=== PATIENT | male | born 2005 | race Caucasian/White ===

== ENCOUNTER 2023-05-20 21:14 | Emergency (ER) | payer OTHER ==
--- NOTE | 2023-05-20 21:27 | ERPHSYRPT ---
- History of Present Illness Time Seen by Provider: 05/20/23 21:27 Historian: patient Exam Limitations: no limitations Physician History: This is a 18-year-old white male has no known cardiac history and works down in the [employer]. While working today he was "bolting" when he had a sudden onset of sharp pain that is central and substernal that radiated cranially up to his chin. That has since resolved but he was having mild shortness of breath associated with that. He denies fever. He denies cough. He has never had anything like this before. Patient does smoke cigarettes/tobacco. He does not use marijuana or other illicit drugs per his report. He has no known drug allergies and he takes no medications chronically. 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) Quality: sharpness, stabbing Location: substernal, central Chest Pain Radiation: jaw Severity of Pain-Max: mild Severity of Pain-Current: none Modifying Factors: Improves With: nothing Associated Symptoms: denies symptoms Prior Chest Pain/Cardiac Workup: no prior chest pain Nitro Today/Relief: no nitro taken today Aspirin Treatment Today: 81 mg x 4, provided by ED Allergies/Adverse Reactions: No Known Drug Allergies Allergy (Unverified 05/20/23 21:17) Home Medications: No Reportable Medications [No Reported Medications] 05/20/23 [History] Travel Risk - International Travel Have you traveled outside of the country in past 3 weeks: No - Coronavirus Screening Are you exhibiting any of the following symptoms?: No Close contact with a COVID-19 positive Pt in past 14-21 Days: No - Review of Systems Constitutional: No Symptoms Eyes: No Symptoms Ears, Nose, & Throat: No Symptoms Respiratory: No Symptoms Cardiac: Chest Pain (Earlier while at work but none now) Abdominal/Gastrointestinal: No Symptoms Genitourinary Symptoms: No Symptoms Musculoskeletal: No Symptoms Skin: No Symptoms Neurological: No Symptoms Psychological: No Symptoms Endocrine: No Symptoms Hematologic/Lymphatic: No Symptoms Immunological/Allergic: No Symptoms All Other Systems: Reviewed and Negative - Past Medical History Pertinent Past Medical History: No - Past Surgical History Past Surgical History: No - Nursing Vital Signs Nursing Vital Signs: Initial Vital Signs Temperature 98.8 F 05/20/23 21:18 Pulse Rate 80 05/20/23 21:18 Respiratory Rate 16 05/20/23 21:18 Blood Pressure 131/81 05/20/23 21:18 O2 Sat by Pulse Oximetry 100 05/20/23 21:18 Pain Scale Pain Intensity 7 - Physical Exam General Appearance: no apparent distress, alert, anxiety, thin Eye Exam: PERRL/EOMI, eyes nml inspection Ears, Nose, Throat Exam: normal ENT inspection, moist mucous membranes Neck Exam: normal inspection, non-tender, supple, full range of motion Respiratory Exam: normal breath sounds, lungs clear, airway intact, No chest tenderness, No respiratory distress Cardiovascular Exam: regular rate/rhythm, normal heart sounds, normal peripheral pulses Gastrointestinal/Abdomen Exam: soft, normal bowel sounds, No tenderness Rectal Exam: not done Back Exam: normal inspection, normal range of motion, No CVA tenderness Extremity Exam: normal inspection, normal range of motion, pelvis stable Neurologic Exam: alert, oriented x 3, cooperative, ship mate II-XII nml as tested, normal mood/affect, nml cerebellar function, nml station & gait, sensation nml Skin Exam: normal color, warm, dry Lymphatic Exam: No adenopathy SpO2 Interpretation: normal O2 Delivery: Room Air - Course Nursing assessment & vital signs reviewed: Yes EKG Interpreted by Me: RATE (79), Sinus Rhythm, NORMAL AXIS, NORMAL INTERVALS, NORMAL QRS, NORMAL ST-T, Other Ordered Tests: Active Orders 24 hr Category Date Time Status Web Editor STAT Care 05/20/23 21:34 Active EKG-ER Only STAT Care 05/20/23 21:33 Active Pulse Oximetry (ED) STAT Care 05/20/23 21:33 Active CHEST 1 VIEW (PORTABLE) Stat Exams 05/20/23 21:33 Ordered CBC W DIFF Stat Lab 05/20/23 21:33 Completed CMP Stat Lab 05/20/23 21:33 Completed D-DIMER QUANTITATIVE Stat Lab 05/20/23 21:33 Completed TROPONIN Q4H Lab 05/20/23 21:45 Completed TROPONIN Q4H Lab 05/21/23 01:45 Ordered TROPONIN Q4H Lab 05/21/23 05:45 Ordered Medication Summary Discontinued Medications Generic Name Dose Route Start Last Admin Trade Name Freq PRN Reason Stop Dose Admin Aspirin 324 mg 05/20/23 21:33 05/20/23 21:53 Aspirin 81 Mg Tab.Chew PO 05/20/23 21:34 324 mg STAT ONE Administration Lab/Rad Data: Laboratory Result Diagrams 05/20/23 21:33 05/20/23 21:33 Laboratory Results 05/20/23 05/20/23 05/20/23 Range/Units 21:45 21:33 21:33 WBC (4.0-10.5) x10^3/uL RBC (4.1-5.6) x10^6/uL Hgb (12.5-18.0) g/dL Hct (42-50) % MCV (78-100) fL MCH (26-32) pg MCHC (32-36) g/dL RDW (11.5-14.0) % Plt Count (150-450) x10^3/uL MPV (7.5-11.0) fL Gran % (36.0-66.0) % Immature Gran % (Auto) (0.00-0.4) % Nucleat RBC Rel Count (0.00-0.1) % Eos # (Auto) (0-0.5) x10^3/uL Immature Gran # (Auto) (0.00-0.03) x10^3u/L Absolute Lymphs (auto) (1.0-4.6) x10^3/uL Absolute Monos (auto) (0.0-1.3) x10^3/uL Absolute Nucleated RBC (0.00-0.01) x10^3u/L Lymphocytes % (24.0-44.0) % Monocytes % (0.0-12.0) % Eosinophils % (0.00-5.0) % Basophils % (0.0-0.4) % Absolute Granulocytes (1.4-6.9) x10^3/uL Basophils # (0-0.4) x10^3/uL D-Dimer < 0.19 (0.0-0.50) mg/L Sodium 141 (137-145) mmol/L Potassium 3.6 (3.5-5.1) mmol/L Chloride 103 (98-107) mmol/L Carbon Dioxide 30 (22-30) mmol/L Anion Gap 11.7 (5-15) MEQ/L BUN 8 L (9-20) mg/dL Creatinine 0.77 (0.66-1.25) mg/dL Estimated GFR > 60.0 ML/MIN Glucose 94 (74-106) mg/dL Calcium 9.3 (8.4-10.2) mg/dL Total Bilirubin 0.50 (0.2-1.3) mg/dL AST 25 (17-59) U/L ALT 18 (0-50) U/L Alkaline Phosphatase 86 (38-126) U/L Troponin I < 0.012 (0.000-0.034) ng/mL Serum Total Protein 7.4 (6.3-8.2) g/dL Albumin 4.6 (3.5-5.0) g/dL 05/20/23 Range/Units 21:33 WBC 11.5 H (4.0-10.5) x10^3/uL RBC 4.54 (4.1-5.6) x10^6/uL Hgb 14.2 (12.5-18.0) g/dL Hct 42.3 (42-50) % MCV 93.2 (78-100) fL MCH 31.3 (26-32) pg MCHC 33.6 (32-36) g/dL RDW 12.1 (11.5-14.0) % Plt Count 183 (150-450) x10^3/uL MPV 11.2 H (7.5-11.0) fL Gran % 74.5 H (36.0-66.0) % Immature Gran % (Auto) 0.3 (0.00-0.4) % Nucleat RBC Rel Count 0.0 (0.00-0.1) % Eos # (Auto) 0.23 (0-0.5) x10^3/uL Immature Gran # (Auto) 0.03 (0.00-0.03) x10^3u/L Absolute Lymphs (auto) 2.07 (1.0-4.6) x10^3/uL Absolute Monos (auto) 0.56 (0.0-1.3) x10^3/uL Absolute Nucleated RBC 0.00 (0.00-0.01) x10^3u/L Lymphocytes % 18.0 L (24.0-44.0) % Monocytes % 4.9 (0.0-12.0) % Eosinophils % 2.0 (0.00-5.0) % Basophils % 0.3 (0.0-0.4) % Absolute Granulocytes 8.54 H (1.4-6.9) x10^3/uL Basophils # 0.04 (0-0.4) x10^3/uL D-Dimer (0.0-0.50) mg/L Sodium (137-145) mmol/L Potassium (3.5-5.1) mmol/L Chloride (98-107) mmol/L Carbon Dioxide (22-30) mmol/L Anion Gap (5-15) MEQ/L BUN (9-20) mg/dL Creatinine (0.66-1.25) mg/dL Estimated GFR ML/MIN Glucose (74-106) mg/dL Calcium (8.4-10.2) mg/dL Total Bilirubin (0.2-1.3) mg/dL AST (17-59) U/L ALT (0-50) U/L Alkaline Phosphatase (38-126) U/L Troponin I (0.000-0.034) ng/mL Serum Total Protein (6.3-8.2) g/dL Albumin (3.5-5.0) g/dL - Progress Progress: improved, re-examined Air Movement: good Progress Note: 05/20/23 22:49 This patient's chest x-ray was interpreted by me. There is no evidence of any acute cardiopulmonary process. The patient's medical issue is 1 of moderate complexity. Level complexity in the work-up performed is based on review of the patient's past medical history, review the patient's medication list, review the patient's drug allergy list, history of present illness and physical findings on examination. This patient's work-up includes placement of intravenous line, twelve-lead EKG, chest x-ray, D-dimer level, troponin level, CBC and CMP. I reviewed the above results. Patient has no acute, emergent medical issue at this time. He is to follow-up with his primary care provider for further evaluation management. Blood Culture(s) Obtained: No Antibiotics given: No Counseled pt/family regarding: lab results, diagnosis, need for follow-up, rad results Medical Desision Making - Diagnostic Testing Diagnostic test were ordered, analyzed, and reviewed by me: Yes Radiological Interpretation: Interpreted by me - Risk of complications Minimal Risk: Minimal risk of morbidity - Departure Departure Disposition: Home Clinical Impression: Chest pain Condition: Stable Critical Care Time: No Additional Instructions: Drink plenty of fluids. Avoid caffeine and nicotine. Follow-up with your primary care provider tomorrow, 05/21/2023, for further evaluation management
[2023-05-20] MEDS ORDERED: BABY ASPIRIN 81 MG CHEW PO ONE (21:33)
[2023-05-20 21:38] LABS: Absolute Neutrophil Ct (ANC) 8.54 x10^3/uL (1.4-6.9); BASOPHIL % 0.3 % (0.0-0.4); Basophil (Absolute #) 0.04 x10^3/uL (0-0.4); Eosinophil (Absolute #) 0.23 x10^3/uL (0-0.5); Hematocrit 42.3 % (42-50); Hemoglobin 14.2 g/dL (12.5-18.0); IMMATURE GRAN # 0.03 x10^3u/L (0.00-0.03); IMMATURE GRAN % 0.3 % (0.00-0.4); Lymphocyte (Absolute #) 2.07 x10^3/uL (1.0-4.6); Mean Cell Volume 93.2 fL (78-100); Mean Corpuscular Hemoglobin 31.3 pg (26-32); Mean Corpuscular Hgb Concent. 33.6 g/dL (32-36); Mean Platelet Volume 11.2 fL (7.5-11.0); Monocyte (Absolute #) 0.56 x10^3/uL (0.0-1.3); Monocytes % 4.9 % (0.0-12.0); Neutrophil % 74.5 % (36.0-66.0); Platelet Count 183 x10^3/uL (150-450); Red Blood Count 4.54 x10^6/uL (4.1-5.6); Red Cell Distribution Width 12.1 % (11.5-14.0); White Blood Count 11.5 x10^3/uL (4.0-10.5)
[2023-05-20 21:48] LABS: ALBUMIN 4.6 g/dL (3.5-5.0); ALKALINE PHOSPHATASE 86 U/L (38-126); ANION GAP 11.7 MEQ/L (5-15); BLOOD UREA NITROGEN 8 mg/dL (9-20); CHLORIDE 103 mmol/L (98-107); Calcium 9.3 mg/dL (8.4-10.2); Carbon Dioxide 30 mmol/L (22-30); Creatinine 1 0.77 mg/dL (0.66-1.25); EST GLOMERULAR FILTRATION RATE > 60.0 ML/MIN; Glucose 94 mg/dL (74-106); Potassium 3.6 mmol/L (3.5-5.1); SGOT/AST 25 U/L (17-59); SGPT/ALT 18 U/L (0-50); SODIUM 141 mmol/L (137-145); Total Protein 7.4 g/dL (6.3-8.2)
[2023-05-20 21:52] VITALS: TEMP 98.8
[2023-05-20 23:38] VITALS: BP 118/71; PULSE 70; RESP 15; O2SAT 96
--- NOTE | 2023-05-21 09:07 | XRAY ---
CLINICAL HISTORY:Chest pain COMPARISON:04/05/2022. TECHNIQUE:X-ray of the chest, PA view. FINDINGS: Radiographic examination of the chest demonstrates clear lungs. Normal configuration of the mediastinum. Mild bilateral hilar vascular prominence. The cardiac size is normal. The bony thorax is unremarkable. The costophrenic and cardiophrenic angles are clear. IMPRESSION: 1. No acute cardiopulmonary disease at present study. 2. No significant interval changes seen since prior study. Electronically Signed by: Harjeet Kendall MD. (05/20/2023 21:13:36 [employer])
== END 2023-05-20 23:38 | disposition home or self-care (01) ==
LOC: ED 21:14
DX: R07.9 Chest pain, unspecified (principal); R06.02 Shortness of breath; Z72.0 Tobacco use
CPT/HCPCS: 36000; 36415; 71045; 80053; 84484; 85025; 85379; 93005; 93041; 94760; 99284; A9270-GY